=== PATIENT | male | born 1990 | race Hispanic/Latino ===

== ENCOUNTER → 2021-12-24 | Outpatient (CLI) | payer OTHER ==
[~2021-12-24] MED LIST: GADOBENATE DIMEGLUMINE 1 ML IV ONE; SODIUM CHLORIDE 0.9% 50ML 50 ML ONE
== END ==
LOC: MRI 07:06
PROVIDERS: ATTEND Internal Medicine
DX: E22.1 Hyperprolactinemia (principal); E29.1 Testicular hypofunction
CPT/HCPCS: 70553; A9577